=== PATIENT | female | born 1985 | race Two or more races ===

== ENCOUNTER 2020-04-19 13:46 | Outpatient (REF) | payer OTHER, SELFPAY ==
[2020-04-19 14:08] LABS: COVID-19 Test Negative (Negative); IDNOW Serial# 55D5AD1C
== END 2020-04-19 13:47 | disposition home or self-care (01) ==
LOC: HO.LAB 13:46
PROVIDERS: Visit Provider Internal Medicine
DX: Z20.828 Contact with and (suspected) exposure to other viral communicable diseases (principal)
CPT/HCPCS: 87635; C9803

== ENCOUNTER 2020-07-11 08:49 | Outpatient (REF) | payer OTHER, SELFPAY ==
[2020-07-11 09:49] LABS: MANUAL DIFF FLAG NO
[2020-07-11 10:01] LABS: Basophils Percent Auto 0.7 % (0-2); Eosinophils Absolute Auto 0.2 X10*3/uL (0.0-0.4); Eosinophils Percent Auto 3.5 % (0-4); Hematocrit 45.5 % (37-47); Hemoglobin 14.7 g/dl (12.0-16.0); Imm Gran Abs Auto 0.02 X10*3/uL (0.00-0.03); Imm Gran Pct Auto 0.3 % (0.0-0.4); Lymphocytes Percent Auto 17.2 % (20-40); Mean Corpuscular HGB Conc 32.3 g/dl (31.0-35.0); Mean Corpuscular Hemoglobin 28.8 pg (27.0-33.0); Mean Platelet Volume 12.1 fL (9.4-12.3); Monocytes Absolute Auto 0.4 X10*3/uL (0.1-1.2); Monocytes Percent Auto 6.4 % (2-11); Neutrophils Absolute Auto 4.2 X10*3/uL (2.0-8.3); Neutrophils Percent Auto 71.9 % (45-73); Platelet Count 229 X10*3/uL (160-400); Red Blood Count 5.11 X10*6/uL (4.20-5.50); Red Cell Distribution Width 12.5 % (11.0-16.0); White Blood Count 5.8 X10*3/uL (4.8-10.8)
[2020-07-11 10:24] LABS: Alanine Aminotransferase 19 U/L (0-31); Albumin Level 4.2 g/dL (3.5-5.0); Alkaline Phosphatase 63 U/L (39-117); Anion Gap 14 (12-20); Aspartate Amino Transferase 17 U/L (5-31); Bilirubin Total 0.4 mg/dL (0.0-1.0); Blood Urea Nitrogen 13 mg/dL (9-16); Calcium 9.1 mg/dL (8.4-10.2); Carbon Dioxide 26 mmol/L (22-29); Chloride 106 mmol/L (96-108); Cholesterol 146 mg/dL; Estimated Glomerular Filt Rate > 60; Glucose Fasting 86 mg/dL (60-99); HDL Cholesterol 37 mg/dL; LDL Cholesterol Calculated 95 mg/dl; Potassium 4.4 mmol/L (3.3-5.1); Sodium 142 mmol/L (135-145); Total Protein 7.1 g/dL (6.5-8.0); Triglycerides 74 mg/dL
[2020-07-11 10:46] LABS: TSH reflex Free T4 1.43 uIU/mL (0.32-4.0)
== END 2020-07-11 08:50 | disposition home or self-care (01) ==
LOC: HO.LAB 08:49
PROVIDERS: PCP Family Medicine; Visit Provider Family Medicine
DX: Z00.00 Encounter for general adult medical examination without abnormal findings (principal)
CPT/HCPCS: 36415; 80053; 80061; 84443; 85025

== ENCOUNTER 2020-07-31 08:23 | Outpatient (REF) | payer OTHER, SELFPAY ==
[2020-08-03 06:42] LABS: HPV mRNA E6/E7 rflx Not Detected (Not Detected)
== END 2020-07-31 08:24 | disposition home or self-care (01) ==
LOC: HO.LAB 08:23
PROVIDERS: PCP Family Medicine; Visit Provider Obstetrics & Gynecology
DX: Z01.419 Encounter for gynecological examination (general) (routine) without abnormal findings (principal); Z11.51 Encounter for screening for human papillomavirus (HPV)
CPT/HCPCS: 36415; 87624; 88142; 99395

== ENCOUNTER 2020-11-07 18:47 | Outpatient (REF) | payer OTHER, SELFPAY | END 2020-11-07 18:48 | disposition home or self-care (01) | LOC: HO.LNP 18:47 | PROVIDERS: Visit Provider Family Medicine | DX: N39.0 Urinary tract infection, site not specified (principal) | CPT/HCPCS: 87086 ==

== ENCOUNTER 2021-10-06 13:33 | Outpatient (REF) | payer OTHER, SELFPAY ==
[2021-10-06 13:55] LABS: Appearance Urine CLEAR; Color Urine YELLOW; Glucose Urine UA NEG (NEG); Leukocyte Esterase Urine TRACE (NEG); Nitrite Urine NEG (NEG); Specific Gravity - Urine 1.025 (1.005-1.025); Urine Blood NEG (NEG); Urine Ketones NEG (NEG); Urine Protein NEG (NEG-TRACE)
[2021-10-06 14:28] LABS: Bacteria Urine 3+ /LPF; RBC Urine 0 /HPF (0); Squamous Epithelial Cell Urine 4+ /LPF
== END 2021-10-06 13:34 | disposition home or self-care (01) ==
LOC: HO.LNP 13:33
PROVIDERS: Visit Provider Family Medicine
DX: Z00.00 Encounter for general adult medical examination without abnormal findings (principal)
CPT/HCPCS: 81001

== ENCOUNTER 2022-01-16 13:53 | Outpatient (REF) | payer OTHER, SELFPAY ==
--- NOTE | ~2022-01-16 | MM_ITS ---
EXAMINATION: MM DIAGNOSTIC DIGITAL BREAST TOMOSYNTHESIS, BILATERAL US DIAGNOSTIC ULTRASOUND BREAST, LEFT CLINICAL INFORMATION: 36-year-old with chronic sized palpable area posterior upper outer left breast for approximately 4 months. Family history breast cancer, 3 paternal aunts. TC score 17%. Intentional decreased weight since prior mammography, 2014. COMPARISON: Mammography: 11/12/2014; bilateral diagnostic breast ultrasound 06/28/2015, right diagnostic breast ultrasound 11/12/2014. TECHNIQUE: Digital breast tomosynthesis is performed in both the craniocaudal and mediolateral oblique views along with computer-aided detection (CAD). Synthesized 2D images are generated from the tomosynthesis. Additional exaggerated left CC view is provided. Ultrasound left breast is targeted to the area of clinical concern. Patient is able to point to area of concern at time of imaging. Grayscale imaging and color Doppler are performed. Patient is imaged both supine and upright. FINDINGS: The breasts are heterogeneously dense, which may obscure small masses (ACR BI-RADS breast composition Category c). There is bilateral decreased breast size consistent with intentional weight loss since prior mammography 2014. There is no interval mass or architectural abnormality or abnormal calcifications. There is no mammographic correlate for the palpable concern. No skin thickening or coarsening of the Cayetano's ligaments. Ultrasound demonstrates no cystic or solid mass or architectural abnormality. No intradermal lesion or skin thickening or edema tracking in soft tissue planes. Results are discussed with the patient at time of visit. MM/MM tomosynthesis diagnostic BI IMPRESSION: -No mammographic evidence of malignancy. -Unremarkable left breast ultrasound. ASSESSMENT: BI-RADS 1: Negative RECOMMENDATION: 1. Patient should be managed based on the clinical impression. If clinically indicated, further evaluation may be considered with surgical consult. Decision to proceed with biopsy should be based on clinical grounds and degree of clinical concern. 2. Otherwise, routine annual screening mammography, beginning age 40, or earlier as clinical risk factors warrant. This patient's information was entered into a reminder system with a target due date for their next mammogram.
== END 2022-01-16 13:54 | disposition home or self-care (01) ==
LOC: HO.MAMMO 13:53
PROVIDERS: PCP Family Medicine; Visit Provider Obstetrics & Gynecology
DX: N63.25 Unspecified lump in the left breast, overlapping quadrants (principal)
CPT/HCPCS: 76642; 77062; 77066

== ENCOUNTER → 2022-06-04 11:49 | Outpatient (BNVA) | payer OTHER, SELFPAY | PROVIDERS: PCP Family Medicine; Visit Provider Obstetrics & Gynecology | DX: N63.25 Unspecified lump in the left breast, overlapping quadrants (principal) | CPT/HCPCS: 99212 ==

== ENCOUNTER → 2022-07-03 10:03 | Outpatient (BNVA) | payer OTHER, SELFPAY | PROVIDERS: PCP Family Medicine; Visit Provider Surgery | DX: N63.0 Unspecified lump in unspecified breast (principal) | CPT/HCPCS: 99202 ==

== ENCOUNTER 2023-02-25 08:26 | Outpatient (AMB) | payer OTHER, SELFPAY ==
--- NOTE | 2023-02-25 08:39 | A.OFFVIS_ITS ---
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 No complaints. Last Pap/HPV was negative in 08/04 [facility] Medical History Sore throat Depression Anxiety Surgical History History of removal of breast implant History of bilateral tubal ligation History of surgery History of tonsillectomy Family History Father History of CVA (cerebrovascular accident) Colon cancer Stroke Mother Thyroid dysfunction High cholesterol Pre-diabetes Maternal Grandmother No problems noted. Maternal Grandfather Diabetes mellitus Paternal Grandmother No problems noted. Paternal Grandfather Colon cancer Maternal Aunt Diabetes mellitus Breast cancer Maternal Uncle FH: testicular cancer Brother No problems noted. Brother No problems noted. Brother No problems noted. Sister No problems noted. Son No problems noted. Daughter No problems noted. Daughter No problems noted. Maternal Aunt Breast cancer, Onset Age: 38 Maternal Aunt Breast cancer Social History Housing: Apartment Alcohol intake: current Alcohol intake frequency: holidays/special occasions only Patient Tobacco Use Status: Current someday Tobacco user Tobacco use type: Cigarette e-Cigarette/Vaping Use: Currently Using service: No Current occupational status: employed Current occupation: [employer] Gender identity: Female Cognitive needs: No Hearing needs: No Vision needs: No Female Reproductive History Menstrual Age of Menarche: 15 Duration of menses: 3-5 days Date of last menstrual period: 02/12/23 control method: permanent sterilization Total pregnancies: 4 Full term: 3 Number of Living Children: 3 Ab induced: 1 Date of last pap smear: 08/01/20 (negative) Review of Systems Const All systems reviewed & are unremarkable except as noted in HPI and below Card Reports as per HPI Resp Reports as per HPI GI Reports as per HPI and Reports no additional complaints Reports as per HPI Physical Exam Vital Signs: Last Vital Signs BP 100/58 L 02/25/23 08:41 BMI result Body Mass Index 31.3 Const General: cooperative, healthy appearing and comfortable Chest Chest palpation & inspection: normal inspection of the chest and normal palpation of entire chest wall Breast/axilla inspection: normal inspection of the breasts and normal inspection of the axillae Breast/axilla palpation: normal palpation of the breasts, normal palpation of the axillae and no axillary lymphadenopathy Resp Effort & Inspection: normal respiratory effort Auscultation: clear to auscultation bilaterally Percussion: percussion normal Cardio Palpation: normal PMI Rate: regular rate Rhythm: regular rhythm Heart sounds: no murmurs and no rubs Peripheral pulses: Peripheral pulses 2+ throughout GI Inspection: Yes normal to inspection Palpation (GI): Soft to palpation, nontender, no guarding, not rigid and No hepatosplenomegaly present Percussion: Yes normal to percussion Auscultation: normal bowel sounds Rectal Exam - Female: deferred General: Yes bladder normal to palpation External Female Exam: No lesion Speculum Exam - Vagina: normal appearance of the vagina, normal palpation, normal vaginal discharge and not erythematous Speculum Exam - Cervix: normal appearance of the cervix and normal palpation Bimanual exam- vagina & uterus: normal bimanual exam, normal palpation, uterine size normal, bladder normal to palpation, consistency normal and normal palpation Bimanual Exam- Adnexa, other: normal adnexae, no masses and no tenderness Assessment & Plan Assessment & Plan (1) Well woman exam: Code(s): Z01.419 - Encounter for gynecological examination (general) (routine) without abnormal findings Plan: Cotesting not indicated this year. Counseled the patient about the recommended dietary allowance of 1000 mg of Calcium & 600 IU of vitamin D. The patient was instructed to perform monthly self-breast exams and to schedule an annual exam in a year; All questions answered and the patient verbalized understanding. Instructed the patient to schedule annual exam in a year Coding Level of Care Code Est Pt Prev Care 18-39y(38250) Diagnoses Well woman exam Z01.419
[2023-02-25 08:41] VITALS: BP 100/58; BMI 31.3
== END 2023-02-25 08:58 | disposition home or self-care (01) ==
PROVIDERS: PCP Family Medicine; Visit Provider Obstetrics & Gynecology
DX: Z01.419 Encounter for gynecological examination (general) (routine) without abnormal findings (principal)
CPT/HCPCS: 99395

== ENCOUNTER → 2023-02-25 08:26 | Outpatient (BNVA) | payer OTHER, SELFPAY | PROVIDERS: Visit Provider Obstetrics & Gynecology | DX: Z01.419 Encounter for gynecological examination (general) (routine) without abnormal findings (principal) | CPT/HCPCS: 99395 ==

== ENCOUNTER 2023-03-03 16:01 | Outpatient (AMB) | payer OTHER, SELFPAY ==
[2023-03-03 16:08] VITALS: BP 110/70; PULSE 64; TEMP 36.9; O2SAT 97; BMI 31.3
--- NOTE | 2023-03-03 16:08 | MHC.PC.OV ---
Vital Signs 03/03/23 16:08 Height 5 ft 7 in Weight 200 lb BMI 31.3 BP 110/70 Blood Pressure Location Lt brachial Position Sitting Pulse 64 Pulse Source Pulse Oximeter Temp 98.4 F Temp Source Oral Pulse Oximetry (%) 97 Oxygen Delivery Method Room Air Oxygen Flow Rate 98.4 Intake Visit Reasons: Eczema on hands Intake Note: Patient is here with eczema acting up on her hands. Patient would like a note to have to only wear nitrile gloves at work. Allergies apple Allergy (Intermediate, Verified 03/03/23 16:38) SWELLING powers Allergy (Intermediate, Verified 03/03/23 16:38) SWELLING almond Allergy (Unknown, Verified 03/03/23 16:38) unknown plum Allergy (Unknown, Verified 03/03/23 16:38) throat swelling tree nut Allergy (Unknown, Verified 03/03/23 16:38) throat swelling, hives Medication List - Last Reconciled 03/03/23 by Iza Whelan CNP hydrocortisone 1% (Anti-Itch (hydrocortisone)) 1 appl topical TID PRN 14 days Tobacco use date assessed: 03/03/23 Dental Screening Dental Screen Date: 03/03/23 Did you have a dental visit in the last 12 months?: No Did you have a dental problem in the last 6 months where you did not have access to dental care?: No Was dental information given to patient?: Yes HPI HPI Comments History of Present Illness Details 37-year-old female presents with complaints of eczema rash to her fingers. She notes that the rash is very itchy. She has been using hydrocortisone cream as prescribed without improvement. 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 Nitrile gloves does not irritate her skin. She requests a letter noting that she requires nitrile gloves to perform her job duties. [facility] Medical History Sore throat Depression Anxiety Surgical History History of removal of breast implant History of bilateral tubal ligation History of surgery History of tonsillectomy Family History Father History of CVA (cerebrovascular accident) Colon cancer Stroke Mother Thyroid dysfunction High cholesterol Pre-diabetes Maternal Grandmother No problems noted. Maternal Grandfather Diabetes mellitus Paternal Grandmother No problems noted. Paternal Grandfather Colon cancer Maternal Aunt Diabetes mellitus Breast cancer Maternal Uncle FH: testicular cancer Brother No problems noted. Brother No problems noted. Brother No problems noted. Sister No problems noted. Son No problems noted. Daughter No problems noted. Daughter No problems noted. Maternal Aunt Breast cancer, Onset Age: 38 Maternal Aunt Breast cancer Social History Housing: Apartment Alcohol intake: current Alcohol intake frequency: holidays/special occasions only Patient Tobacco Use Status: Current someday Tobacco user Tobacco use type: Cigarette e-Cigarette/Vaping Use: Currently Using service: No Current occupational status: employed Current occupation: [employer] Gender identity: Female Cognitive needs: No Hearing needs: No Vision needs: No Female Reproductive History Menstrual Age of Menarche: 15 Questionnaire Thrive Questionnaire Date Thrive assessed: 10/06/22 LYSSA-7 AMB Questionnaire LYSSA-7 Date LYSSA - 7 assessed: 10/06/22 Source: Developed by Drs. Nas Mora, Shanelle Miller, Satnam Khoury and colleagues, with an educational thaddeus from [employer] Review of Systems Const Details: Const Denies chills, Denies fatigue, Denies fever(s), Denies headache(s) and Denies weakness ENT Denies dizziness and Denies headache(s) Card Denies chest pain, Denies lightheadedness, Denies dyspnea and Denies other (Palpitations) Resp Denies cough, Denies dyspnea, Denies wheezing and Denies other ( shortness of breath) GI Denies abdominal pain, Denies melena, Denies hematochezia, Denies change in bowel habits, Denies dyspepsia and Denies nausea Denies hematuria and Denies dysuria Musc Denies abnormal gait, Denies myalgias, Denies arthralgias, Denies numbness and Denies tingling Skin/Breast Reports as per HPI Neuro Denies abnormal gait, Denies dizziness, Denies headache(s), Denies memory loss, Denies numbness, Denies Sensory deficit (Neuro), Denies tingling and Denies weakness Psych Denies anxiety, Denies depression, Denies memory loss Endo Denies cold intolerance, Denies fatigue, Denies heat intolerance, Denies polydipsia and Denies polyuria Aller/Immun Denies wheezing Physical exam (Primary Care) Vital Signs: Last Vital Signs Temp 98.4 F 03/03/23 16:08 Pulse 64 03/03/23 16:08 BP 110/70 03/03/23 16:08 Pulse Ox 97 03/03/23 16:08 Oxygen Delivery Method Room Air 03/03/23 16:08 Oxygen Flow Rate 98.4 03/03/23 16:08 BMI result Body Mass Index 31.3 Tobacco/Smoking Status: Tobacco use Status Tobacco use date assessed 03/03/23 03/03/23 16:15 Patient Tobacco Use Status Current someday Tobacco 03/03/23 16:15 Tobacco use type Cigarette 03/03/23 16:15 e-Cigarette/Vaping Use Currently Using 03/03/23 16:15 Thrive Assessment: Date of Thrive Assessment Date Thrive assessed 10/06/22 03/03/23 16:15 Const Other: General: no acute distress and well developed Nutritional Appearance: well nourished Orientation/consciousness: patient oriented x3 HENMT Head: Yes normocephalic and Yes atraumatic Eyes General: appearance normal, both eyes and all related structures Pupils: Equal, round and reactive pupils present EOM: EOMs intact bilaterally Resp Effort & Inspection: normal respiratory effort Auscultation: clear to auscultation bilaterally Cardio Rate: regular rate Rhythm: regular rhythm Heart sounds: S1 normal heart sound present, S2 normal heart sound present, no gallops, no murmurs and no rubs GI Palpation (GI): No Abdominal aortic bruit present, Soft to palpation, nontender, No hepatosplenomegaly present and No Rebound tenderness present Auscultation: normal bowel sounds General: Yes no CVA tenderness Back/Spine/Pelvis Back: no CVA tenderness Cervical Spine: cervical ROM normal and No Cervical spine tenderness Thoracic/Lumbar Spine: thoraco-lumbar ROM normal, No pain with thoraco-lumbar ROM, No thoracic spinal tenderness and No lumbar spinal tenderness Extrem General: Yes normal to inspection, No edema and No calf tenderness Skin General: warm and dry. Normal skin color. Normal skin turgor Dry, irritated skin noted to the dorsum of the fingers of both hands. No erythema or edema. Skin is intact Neuro General: patient oriented x3, gait normal and no focal neuro deficit Cranial nerves: Yes Equal, round and reactive pupils present Cognition (Neuro): normal cognition Gait exam (Neuro): Normal gait present Sensory Exam: No Sensory deficit (Neuro) Psych Appearance: grossly normal Affect: normal affect Attitude: cooperative Thought process: Normal thought process present Assessment and Plan Assessment & Plan (1) Eczema: Code(s): L30.9 - Dermatitis, unspecified Plan: Reports eczema rash to her fingers. She notes that the rash is very itchy. 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 Nitrile gloves does not irritate her skin. Dry, irritated skin noted to the dorsum of the fingers of both hands. No erythema or edema. Skin is intact. Betamethasone cream ordered. Take as prescribed Letter given to wear nitrile gloves when performing job functions. Follow-up with worsening or new signs and symptoms. Verbalized understanding and agreed with treatment plan. Medications: New betamethasone valerate 0.1% 1 appl topical BID PRN 45 grams 2RF skin irritation Discontinued hydrocortisone 1% (Anti-Itch (hydrocortisone)) Discontinued Reason: Doctor's Order 1 appl topical TID PRN 28.4 grams 3RF skin irritation 14 days Coding Level of Care Code Est Pt Level 3 (89826) Diagnoses Eczema L30.9
== END 2023-03-03 17:06 | disposition home or self-care (01) ==
PROVIDERS: PCP Family Medicine; Visit Provider Nurse Practitioner Family
DX: L30.9 Dermatitis, unspecified (principal)
CPT/HCPCS: 99213

== ENCOUNTER 2023-03-25 09:31 | Outpatient (AMB) | payer OTHER, SELFPAY ==
[2023-03-25 09:36] VITALS: BP 100/62; PULSE 69; RESP 15; TEMP 37; O2SAT 99; BMI 31.0
--- NOTE | 2023-03-25 09:36 | MHC.PC.OV ---
Vital Signs 03/25/23 09:36 Height 5 ft 7 in Weight 198 lb BMI 31.0 BP 100/62 Blood Pressure Location Lt brachial Position Sitting Respiration 15 Pulse 69 Pulse Source Pulse Oximeter Temp 98.6 F Temp Source Oral Pulse Oximetry (%) 99 Oxygen Delivery Method Room Air Intake Visit Reasons: Body aches/headache/cough/sore throat Intake Note: Patient reports cough, sore throat and body aches x 4 days, fever, body aches, headache x 3 days, loss of appetite, running nose, diarrhea, body aches, x 1 day. Patient states she tested herself at home for Covid several times and she tested negative. Press Secretary Required: No Accompanied by: Self / Same As Patient Allergies apple Allergy (Intermediate, Verified 03/25/23 10:01) SWELLING powers Allergy (Intermediate, Verified 03/25/23 10:01) SWELLING almond Allergy (Unknown, Verified 03/25/23 10:01) unknown plum Allergy (Unknown, Verified 03/25/23 10:01) throat swelling tree nut Allergy (Unknown, Verified 03/25/23 10:01) throat swelling, hives Medication List - Last Reconciled 03/25/23 by Iza Whelan CNP betamethasone valerate 0.1% 1 appl topical BID PRN Tobacco use date assessed: 03/03/23 HPI HPI Comments History of Present Illness Details 37-year-old female presents with complaints of cough, sore throat, body aches, headache, loss of appetite, runny nose, chills, sweating, weakness, and clogged ears. Her symptoms started 4 days ago and has progressively gotten worse. She reports stomach pain which started this morning; she had non bloody vomit x 1 this morning. She has been taking daytime and nighttime tylenol-flu with some improvement. She denies sick contacts. 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 She notes she had multiple negative home COVID tests. She states she had the flu vaccine last week. COUNT INCLUDES THE [facility] Medical History Sore throat Depression Anxiety Surgical History History of removal of breast implant History of bilateral tubal ligation History of surgery History of tonsillectomy Family History Father History of CVA (cerebrovascular accident) Colon cancer Stroke Mother Thyroid dysfunction High cholesterol Pre-diabetes Maternal Grandmother No problems noted. Maternal Grandfather Diabetes mellitus Paternal Grandmother No problems noted. Paternal Grandfather Colon cancer Maternal Aunt Diabetes mellitus Breast cancer Maternal Uncle FH: testicular cancer Brother No problems noted. Brother No problems noted. Brother No problems noted. Sister No problems noted. Son No problems noted. Daughter No problems noted. Daughter No problems noted. Maternal Aunt Breast cancer, Onset Age: 38 Maternal Aunt Breast cancer Social History Housing: Apartment Alcohol intake: current Alcohol intake frequency: holidays/special occasions only Patient Tobacco Use Status: Current someday Tobacco user Tobacco use type: Cigarette e-Cigarette/Vaping Use: Currently Using service: No Current occupational status: employed Current occupation: [employer] Gender identity: Female Cognitive needs: No Hearing needs: No Vision needs: No Female Reproductive History Menstrual Age of Menarche: 15 Questionnaire Thrive Questionnaire Date Thrive assessed: 10/06/22 LYSSA-7 AMB Questionnaire LYSSA-7 Date LYSSA - 7 assessed: 10/06/22 Source: Developed by Drs. Nas Mora, Shanelle Miller, Satnam Khoury and colleagues, with an educational thaddeus from [employer]. Review of Systems Const Details: Const Reports chills, Reports fatigue, Denies fever(s), Reports headache(s) and Reports weakness ENT Reports as per HPI Card Denies chest pain, Denies lightheadedness, Denies dyspnea and Denies other (Palpitations) Resp Denies cough, Denies dyspnea, Denies wheezing and Denies other ( shortness of breath) GI Reports abdominal pain, Denies melena, Denies hematochezia, Denies change in bowel habits, Denies dyspepsia and Denies nausea Denies hematuria and Denies dysuria Musc Denies abnormal gait, Denies myalgias, Denies arthralgias, Denies numbness and Denies tingling Skin/Breast Denies rash, Denies unusual bruising and Denies wounds Neuro Denies abnormal gait, Denies dizziness, Reports headache(s), Denies memory loss, Denies numbness, Denies Sensory deficit (Neuro), Denies tingling and Denies weakness Psych Denies anxiety, Denies depression, Denies memory loss Endo Denies cold intolerance, Reports fatigue, Denies heat intolerance, Denies polydipsia and Denies polyuria Aller/Immun Denies wheezing Physical exam (Primary Care) Vital Signs: Last Vital Signs Temp 98.6 F 03/25/23 09:36 Pulse 69 03/25/23 09:36 Resp 15 03/25/23 09:36 BP 100/62 03/25/23 09:36 Pulse Ox 99 03/25/23 09:36 Oxygen Delivery Method Room Air 03/25/23 09:36 BMI result Body Mass Index 31.0 Tobacco/Smoking Status: Tobacco use Status Tobacco use date assessed 03/03/23 03/25/23 09:44 Patient Tobacco Use Status Current someday Tobacco 03/25/23 09:44 Tobacco use type Cigarette 03/25/23 09:44 e-Cigarette/Vaping Use Currently Using 03/25/23 09:44 Thrive Assessment: Date of Thrive Assessment Date Thrive assessed 10/06/22 03/25/23 09:44 Const Other: General: no acute distress and well developed Nutritional Appearance: well nourished Orientation/consciousness: patient oriented x3 HENMT Head is normocephalic Bilateral ear canal and TM are normal Nasal turbinates are pink and moist Oropharynx with moderate erythema, tonsils are not swollen, no patches or exudate Sinuses are nontender with palpation No auricular or cervical lymphadenopathy Eyes General: appearance normal, both eyes and all related structures Pupils: Equal, round and reactive pupils present EOM: EOMs intact bilaterally Resp Effort & Inspection: normal respiratory effort Auscultation: clear to auscultation bilaterally Cardio Rate: regular rate Rhythm: regular rhythm Heart sounds: S1 normal heart sound present, S2 normal heart sound present, no gallops, no murmurs and no rubs GI Palpation (GI): No Abdominal aortic bruit present, Soft to palpation, nontender, No hepatosplenomegaly present and No Rebound tenderness present Auscultation: normal bowel sounds General: Yes no CVA tenderness Back/Spine/Pelvis Back: no CVA tenderness Cervical Spine: cervical ROM normal and No Cervical spine tenderness Thoracic/Lumbar Spine: thoraco-lumbar ROM normal, No pain with thoraco-lumbar ROM, No thoracic spinal tenderness and No lumbar spinal tenderness Extrem General: Yes normal to inspection, No edema and No calf tenderness Skin General: warm and dry. Normal skin color. Normal skin turgor Neuro General: patient oriented x3, gait normal and no focal neuro deficit Cranial nerves: Yes Equal, round and reactive pupils present Cognition (Neuro): normal cognition Gait exam (Neuro): Normal gait present Sensory Exam: No Sensory deficit (Neuro) Psych Appearance: grossly normal Affect: normal affect Attitude: cooperative Thought process: Normal thought process present Assessment and Plan Assessment & Plan (1) Viral infection: Code(s): B34.9 - Viral infection, unspecified Plan: Likely viral illness though possibly allergies. No exam evidence of bacterial infection Viral illness There is no antibiotic medication for viruses.? They must run their course.? Most average 5-7 days but 7-10 days is not uncommon and up to 14 days is still possible.? A cough is often the last symptom to resolve and this can last for weeks in some cases. Rest Hydrate well -? Drink plenty of fluids.? Especially water. Tylenol or ibuprofen for muscle aches, headache, fever/discomfort Zyrtec daily Cannot rule out COVID-19/RSV/Flu infection Nasal swab acquired and will be sent to the lab Return for new or worsening symptoms Verbalized understanding and agreed with treatment plan. (2) Pharyngitis: Code(s): J02.9 - Acute pharyngitis, unspecified Plan: Oropharynx with moderate erythema, tonsils are not swollen, no patches or exudate Likely viral cause Plan as above Orders: Orders SARS-CoV2/FLU/RSV Today B34.9 - Viral infection, unspecified Medications: New cetirizine (Zyrtec) 10 mg PO DAILY 30 tabs 1RF 30 days Coding Level of Care Code Est Pt Level 3 (83544) Diagnoses Viral infection B34.9 Pharyngitis J02.9
== END 2023-03-25 10:56 | disposition home or self-care (01) ==
PROVIDERS: PCP Family Medicine; Visit Provider Nurse Practitioner Family
DX: B34.9 Viral infection, unspecified (principal); J02.9 Acute pharyngitis, unspecified
CPT/HCPCS: 99213

== ENCOUNTER 2023-03-25 10:22 | Outpatient (REF) | payer OTHER, SELFPAY ==
[2023-03-25 15:40] LABS: Influenza A PCR POSITIVE (Negative); Influenza B PCR NEGATIVE (Negative); Resp Syncy Virus RNA Qual PCR NEGATIVE (Negative); SARS COV2 PCR INHOUSE NEGATIVE (Negative)
== END 2023-03-25 10:23 | disposition home or self-care (01) ==
LOC: HO.LAB 10:22
PROVIDERS: Visit Provider Nurse Practitioner Family
DX: Z11.52 Encounter for screening for COVID-19 (principal); B34.9 Viral infection, unspecified
CPT/HCPCS: 0241U

== ENCOUNTER 2023-06-09 15:38 | Outpatient (AMB) | payer OTHER, SELFPAY ==
--- NOTE | 2023-06-09 15:51 | MHC.PC.OV ---
Vital Signs 06/09/23 15:53 Height 5 ft 7 in Weight 198 lb BMI 31.0 BP 101/72 Blood Pressure Location Lt brachial Position Sitting Pulse 61 Pulse Source Pulse Oximeter Pulse Oximetry (%) 100 Oxygen Delivery Method Room Air Intake Visit Reasons: Annual PE Intake Note: Patient is here for her physical today. Patient is requesting vitamin D prescription today. Allergies apple Allergy (Intermediate, Verified 06/09/23 15:54) SWELLING powers Allergy (Intermediate, Verified 06/09/23 15:54) SWELLING almond Allergy (Unknown, Verified 06/09/23 15:54) unknown plum Allergy (Unknown, Verified 06/09/23 15:54) throat swelling tree nut Allergy (Unknown, Verified 06/09/23 15:54) throat swelling, hives Tobacco use date assessed: 06/09/23 Dental Screening Dental Screen Date: 06/09/23 Did you have a dental visit in the last 12 months?: No Did you have a dental problem in the last 6 months where you did not have access to dental care?: No Was dental information given to patient?: Yes HPI Annual PE HPI Details 37 y/o female presents for an extended exam with f/u labs and health maintenance. No recent labs to review. Pt requests supplements for her vitamin D. Pt reports abdominal, intermittent has been ongoing for awhile. She states she does feel bloated. She states abd. pain worse in the morning. She notes she does not drink much water. Pt states she does not eat a healthy diet much. She does have an active lifestyle. Pt reports she goes to [facility] and last pap smear was normal per pt. She states last mammogram was in February. [facility] Medical History Sore throat Depression Anxiety Surgical History History of removal of breast implant History of bilateral tubal ligation History of surgery History of tonsillectomy Family History Father History of CVA (cerebrovascular accident) Colon cancer Stroke Mother Thyroid dysfunction High cholesterol Pre-diabetes Maternal Grandmother No problems noted. Maternal Grandfather Diabetes mellitus Paternal Grandmother No problems noted. Paternal Grandfather Colon cancer Maternal Aunt Diabetes mellitus Breast cancer Maternal Uncle FH: testicular cancer Brother No problems noted. Brother No problems noted. Brother No problems noted. Sister No problems noted. Son No problems noted. Daughter No problems noted. Daughter No problems noted. Maternal Aunt Breast cancer, Onset Age: 38 Maternal Aunt Breast cancer Social History Housing: Apartment Alcohol intake: current Alcohol intake frequency: holidays/special occasions only Patient Tobacco Use Status: Current someday Tobacco user Tobacco use type: Cigarette e-Cigarette/Vaping Use: Currently Using service: No Current occupational status: employed Current occupation: [employer] Gender identity: Female Cognitive needs: No Hearing needs: No Vision needs: No Female Reproductive History Menstrual Age of Menarche: 15 Questionnaire PHQ-9 Over the last 2 weeks, how often have you been bothered by any of the following problems? 1. Little interest or pleasure in doing things: not at all 2. Feeling down, depressed, or hopeless: not at all 3. Trouble falling or staying asleep, or sleeping too much: several days 4. Feeling tired or having little energy: more than half the days 5. Poor appetite or overeating: several days 6. Feeling bad about yourself - or that you are a failure or have let yourself or your family down: not at all 7. Trouble concentrating on things, such as reading the newspaper or watching television: several days 8. Moving or speaking so slowly that other people could have noticed. Or the opposite - being so fidgety or restless that you have been moving around a lot more than usual: not at all 9. Thoughts that you would be better off or of hurting yourself in some way: not at all Total score: 5 Source: Developed by Drs. Nas Mora, Shanelle Miller, Satnam Khoury and colleagues, with an educational thaddeus from [employer]. Thrive Questionnaire Date Thrive assessed: 06/09/23 I am a: Patient What is your living situation today?: I have a steady place to live Within the past 12 months, did the food you bought not last and you didn't have the money to get more?: Never true Within the past 12 months, did you worry whether your food would run out before you got money to buy more?: Never true Do you have trouble paying for medicines?: No Do you have trouble getting transportation to medical appointments?: No Do you have trouble paying your heating and electricity bill?: No Do you have trouble taking care of your child, family member or friend?: No Do you have trouble with day-to-day activities such as bathing, preparing meals, shopping, managing finances, etc.?: No Are you currently unemployed and looking for a job?: No Are you interested in more education?: No THRIVE Score: 0 AUDIT C Alcohol Use Questionnaire (AUDIT-C) 1. How often do you have a drink containing alcohol?: Monthly or less 2. How many drinks containing alcohol do you have on a typical day when you are drinking?: 1 or 2 3. How often do you have six or more drinks on one occasion?: Never Total Score: 1 LYSSA-7 AMB Questionnaire LYSSA-7 Date LYSSA - 7 assessed: 06/09/23 Feeling nervous, anxious, or on edge: 1 = Several days Not being able to stop or control worryin = Several days Worrying too much about different things: 1 = Several days Trouble relaxin = Several days Being so restless that it is hard to sit still: 1 = Several days Becoming easily annoyed or irritable: 3 = Nearly every day Feeling afraid as if something awful might happen: 0 = Not at all Total LYSSA-7 score (0-4 normal; 5-9 mild; 10-14 moderate; 15-21 severe): 8 Source: Developed by Drs. Nas Mora, Shanelle Miller, Satnam Khoury and colleagues, with an educational thaddeus from [employer]. Review of Systems Const Denies chills, Denies fatigue, Denies fever(s), Denies headache(s) and Denies weakness Eyes Denies change in vision ENT Denies dizziness, Denies headache(s), Denies hearing loss, Denies nasal congestion, Denies sinus pain, Denies sinus pressure and Denies sore throat Card Denies chest pain, Denies lightheadedness, Denies dyspnea and Denies other (palpitations) Resp Denies cough, Denies dyspnea and Denies wheezing GI Denies abdominal pain, Denies melena, Denies hematochezia, Denies change in bowel habits, Denies dyspepsia and Denies nausea Denies hematuria and Denies dysuria Musc Denies abnormal gait, Denies myalgias, Denies arthralgias, Denies numbness and Denies tingling Skin/Breast Denies rash, Denies unusual bruising and Denies wounds Neuro Denies abnormal gait, Denies dizziness, Denies headache(s), Denies memory loss, Denies numbness, Denies Sensory deficit (Neuro), Denies tingling and Denies weakness Psych Denies anxiety, Denies depression and Denies memory loss Endo Denies cold intolerance, Denies fatigue, Denies heat intolerance, Denies polydipsia and Denies polyuria Davon/Lymph Denies easy bleeding and Denies easy bruising Aller/Immun Denies wheezing Physical exam (Primary Care) BMI result Body Mass Index 31.0 Tobacco/Smoking Status: Tobacco use Status Tobacco use date assessed 06/09/23 06/09/23 16:06 Patient Tobacco Use Status Current someday Tobacco 06/09/23 16:06 Tobacco use type Cigarette 06/09/23 16:06 e-Cigarette/Vaping Use Currently Using 06/09/23 16:06 PHQ-9: PHQ-9 Score PHQ-9: Total score 5 06/09/23 16:06 Thrive Assessment: Date of Thrive Assessment Date Thrive assessed 06/09/23 06/09/23 16:06 Const General: no acute distress, well developed, alert and awake Nutritional Appearance: well nourished Orientation/consciousness: patient oriented x3 HENMT Head: Yes normocephalic and Yes atraumatic Ears: hearing grossly normal bilaterally and TM's normal bilaterally General nose exam: Normal external nose present and Normal nares present Mouth: Normal oral and palatal mucosa present and moist mucous membranes Teeth and gingiva: dentition normal Throat: Yes posterior oropharynx normal Eyes General: appearance normal, both eyes and all related structures Pupils: Equal, round and reactive pupils present and Pupil accommodation reflex normal EOM: EOMs intact bilaterally Neck Neck: Yes normal visual inspection, Yes no lymphadenopathy and Yes trachea midline Thyroid: Thyroid normal Carotids: no bruits Lymphatic: no lymphadenopathy noted Chest Chest palpation & inspection: normal inspection of the chest Resp Effort & Inspection: normal respiratory effort Auscultation: clear to auscultation bilaterally Cardio Rate: regular rate Rhythm: regular rhythm Heart sounds: S1 normal heart sound present, S2 normal heart sound present, no gallops, no murmurs and no rubs Bruits: no abdominal aortic bruits and no carotid bruits GI Palpation (GI): No Abdominal aortic bruit present, Soft to palpation, nontender, No hepatosplenomegaly present and No Rebound tenderness present Auscultation: normal bowel sounds General: Yes no CVA tenderness Back/Spine/Pelvis Back: no CVA tenderness Cervical Spine: cervical ROM normal and No Cervical spine tenderness Thoracic/Lumbar Spine: thoraco-lumbar ROM normal, No pain with thoraco-lumbar ROM, No thoracic spinal tenderness and No lumbar spinal tenderness Skin Lesions: no lesions Rashes: no rashes Trauma: no lacerations or abrasions Wounds: no wounds Nails: normal Neuro General: patient oriented x3 Cranial nerves: Yes Equal, round and reactive pupils present Cognition (Neuro): normal cognition Gait exam (Neuro): Normal gait present Motor exam (neuro): 5/5 motor strength present throughout Sensory Exam: No Sensory deficit (Neuro) Deep tendon reflexes (DTR's): Right patellar reflex intensity grade: 2+ and Left patellar reflex intensity grade: 2+ Extrem General: Yes normal to inspection and No edema Psych Appearance: grossly normal Affect: normal affect Attitude: cooperative Thought process: Normal thought process present Assessment and Plan Assessment & Plan (1) Abdominal pain: Code(s): R10.9 - Unspecified abdominal pain Plan: Increase?hydration Consider?soluble?fiber?tablet She?will?let?me?know?if?not?improving (2) Screening for cervical cancer: Code(s): Z12.4 - Encounter for screening for malignant neoplasm of cervix Plan: Followed?by?[facility]?and?up-to-date Continue?to?follow-up?with?lead software qa engineer?as?recommended (3) Low vitamin D level: Code(s): R79.89 - Other specified abnormal findings of blood chemistry Plan: Check?vitamin-D?level Refilled?her?vitamin-D (4) Adult general medical exam: Code(s): Z00.00 - Encounter for general adult medical examination without abnormal findings Plan: 37-year-old?female?presents?for?extended?exam Encouraged?healthy?diet?with?active?lifestyle?and?plenty?of?exercise Orders: Orders Lipid Panel Today Z00.00 - Encounter for general adult medical examination without abnormal findings Microalbumin, Random (w Creat) Today I10 - Essential (primary) hypertension TSH reflex Free T4 Today Z00.00 - Encounter for general adult medical examination without abnormal findings Comprehensive [place]. Panel Fast Today Z00.00 - Encounter for general adult medical examination without abnormal findings UA and rflx microscopic Today Z00.00 - Encounter for general adult medical examination without abnormal findings Vitamin D 25-OH Total Today E55.9 - Vitamin D deficiency, unspecified Medications: New cholecalciferol (vitamin D3) 50 mcg PO DAILY 90 days 90 caps 1RF Coding Level of Care Code Est Pt Level 4 (26449) Diagnoses Abdominal pain R10.9 Screening for cervical cancer Z12.4 Low vitamin D level R79.89 Adult general medical exam Z00.00
[2023-06-09 15:53] VITALS: BP 101/72; PULSE 61; O2SAT 100; BMI 31.0
== END 2023-06-09 16:31 | disposition home or self-care (01) ==
PROVIDERS: PCP Family Medicine; Visit Provider Family Medicine
DX: Z00.00 Encounter for general adult medical examination without abnormal findings (principal); R10.9 Unspecified abdominal pain; R79.89 Other specified abnormal findings of blood chemistry
CPT/HCPCS: 99395

== ENCOUNTER 2023-06-10 07:49 | Outpatient (REF) | payer OTHER, SELFPAY ==
[2023-06-10 08:15] LABS: Appearance Urine Clear; Color Urine Yellow; Glucose Urine UA Negative (Negative); Leukocyte Esterase Urine Negative (Negative); Nitrite Urine Negative (Negative); PH 5.5 (5.0-9.0); Specific Gravity - Urine >= 1.030 (1.005-1.025); Urine Blood Negative (Negative); Urine Ketones Negative (Negative); Urine Protein Negative (Neg-Trace)
[2023-06-10 08:43] LABS: Creatinine Urine 303.59 mg/dL; Microalbum/Creatinine Ratio Ur 3.6 ug/mg cr (<30)
[2023-06-10 08:54] LABS: Alanine Aminotransferase 11 U/L (0-31); Albumin Level 3.9 g/dL (3.5-5.0); Alkaline Phosphatase 57 U/L (39-117); Anion Gap 11 (12-20); Aspartate Amino Transferase 12 U/L (5-31); Bilirubin Total 0.4 mg/dL (0.0-1.0); Blood Urea Nitrogen 10 mg/dL (9-16); Calcium 9.2 mg/dL (8.4-10.2); Carbon Dioxide 26 mmol/L (22-29); Chloride 107 mmol/L (96-108); Cholesterol 148 mg/dL (<200); Estimated Glomerular Filt Rate > 60; Glucose Fasting 85 mg/dL (60-99); HDL Cholesterol 40 mg/dL (>40); LDL Cholesterol Calculated 98 mg/dL (<100); Potassium 3.5 mmol/L (3.3-5.1); Sodium 140 mmol/L (135-145); Triglycerides 51 mg/dL (<150)
[2023-06-10 09:03] LABS: TSH reflex Free T4 1.77 uIU/mL (0.32-4.0)
== END 2023-06-10 07:50 | disposition home or self-care (01) ==
LOC: HO.LAB 07:49
PROVIDERS: PCP Family Medicine; Visit Provider Family Medicine
DX: Z00.00 Encounter for general adult medical examination without abnormal findings (principal); I10 Essential (primary) hypertension; E55.9 Vitamin D deficiency, unspecified
CPT/HCPCS: 36415; 80053; 80061; 81003; 82043; 82306; 82570; 84443

== ENCOUNTER 2023-07-23 15:09 | Outpatient (AMB) | payer OTHER, SELFPAY ==
--- NOTE | 2023-07-23 15:05 | MHC.PC.OV ---
Intake Visit Reasons: f/u CPE-labs Allergies apple Allergy (Intermediate, Verified 07/23/23 15:06) SWELLING powers Allergy (Intermediate, Verified 07/23/23 15:06) SWELLING almond Allergy (Unknown, Verified 07/23/23 15:06) unknown plum Allergy (Unknown, Verified 07/23/23 15:06) throat swelling tree nut Allergy (Unknown, Verified 07/23/23 15:06) throat swelling, hives Tobacco use date assessed: 06/09/23 HPI f/u CPE-labs HPI Details Telemedicine?appointment?to?follow-up?CPE-labs?and?abdominal?discomfort. Reviewed?labs?with?patient?and?all?labs?okay?except?urine?is?maximally?concentrated?and?as?we?discussed?at?her?appointment?recently,?she?should?increase?her?hydration. Patient?notes?that?since?increasing?hydration?after?labs,?symptoms?have?improved?somewhat. PFSH Medical History Sore throat Depression Anxiety Surgical History History of removal of breast implant History of bilateral tubal ligation History of surgery History of tonsillectomy Family History Father History of CVA (cerebrovascular accident) Colon cancer Stroke Mother Thyroid dysfunction High cholesterol Pre-diabetes Maternal Grandmother No problems noted. Maternal Grandfather Diabetes mellitus Paternal Grandmother No problems noted. Paternal Grandfather Colon cancer Maternal Aunt Diabetes mellitus Breast cancer Maternal Uncle FH: testicular cancer Brother No problems noted. Brother No problems noted. Brother No problems noted. Sister No problems noted. Son No problems noted. Daughter No problems noted. Daughter No problems noted. Maternal Aunt Breast cancer, Onset Age: 38 Maternal Aunt Breast cancer Social History Housing: Apartment Alcohol intake: current Alcohol intake frequency: holidays/special occasions only Patient Tobacco Use Status: Current someday Tobacco user Tobacco use type: Cigarette Cigarettes Per Day: 1 e-Cigarette/Vaping Use: Currently Using service: No Current occupational status: employed Current occupation: [employer] Gender identity: Female Cognitive needs: No Hearing needs: No Vision needs: No Female Reproductive History Menstrual Age of Menarche: 15 Questionnaire Thrive Questionnaire Date Thrive assessed: 06/09/23 LYSSA-7 AMB Questionnaire LYSSA-7 Date LYSSA - 7 assessed: 06/09/23 Source: Developed by Drs. Nas Mora, Shanelle Miller, Satnam Khoury and colleagues, with an educational thaddeus from [employer]. Review of Systems Const Denies chills, Denies fatigue, Denies fever(s), Denies headache(s) and Denies weakness ENT Denies dizziness and Denies headache(s) Card Denies chest pain, Denies lightheadedness, Denies dyspnea and Denies other (Palpitations) Resp Denies cough, Denies dyspnea, Denies wheezing and Denies other ( shortness of breath) Musc Denies numbness and Denies tingling Neuro Denies dizziness, Denies headache(s), Denies numbness, Denies tingling, Denies paresthesias and Denies weakness Psych Denies anxiety and Denies depression Endo Denies fatigue Aller/Immun Denies wheezing Physical exam (Primary Care) Tobacco/Smoking Status: Tobacco use Status Tobacco use date assessed 06/09/23 07/23/23 15:08 Patient Tobacco Use Status Current someday Tobacco 07/23/23 15:08 Tobacco use type Cigarette 07/23/23 15:08 e-Cigarette/Vaping Use Currently Using 07/23/23 15:08 Thrive Assessment: Date of Thrive Assessment Date Thrive assessed 06/09/23 07/23/23 15:08 Telehealth Telehealth Location of provider rendering services: practice address Location of patient: address on file Patient Identification confirmed using: Name, : Yes Telehealth method: voice only Patient verbally consented to treatment: Yes Patient verbally consented to billing insurance company: Yes Patient informed of any privacy concerns related to visit: Yes Minutes spent on Phone/Video with Pt.: 5 Assessment and Plan Assessment & Plan (1) Abdominal pain: Code(s): R10.9 - Unspecified abdominal pain Plan: Improved?with?good?hydration Encouraged?good?hydration?again (2) Low vitamin D level: Code(s): R79.89 - Other specified abnormal findings of blood chemistry Plan: Vitamin-D?level?is?good?on?cholecalciferol?supplement. Continue?vitamin-D?supplement Coding Level of Care Code Tele Est Pt Level 2 (93440) Diagnoses Abdominal pain R10.9 Low vitamin D level R79.89
== END 2023-07-23 17:00 ==
LOC: HO.HMGFM 15:10
PROVIDERS: PCP Family Medicine; Visit Provider Family Medicine
DX: R10.9 Unspecified abdominal pain (principal); R79.89 Other specified abnormal findings of blood chemistry
CPT/HCPCS: 99212

== ENCOUNTER 2024-04-19 09:34 | Outpatient (REF) | payer OTHER, SELFPAY ==
[2024-04-19 18:13] LABS: Bacterial Vaginosis PCR NEGATIVE (Negative); Candida Group PCR NOT DETECTED (Not Detect); Candida glab krusei PCR NOT DETECTED (Not Detect); Trichomonas vaginalis PCR NOT DETECTED (Not Detect)
[2024-04-20 06:29] LABS: CT PCR NOT DETECTED (Not Detect.); NG PCR NOT DETECTED (Not Detect.)
== END 2024-04-19 09:35 | disposition home or self-care (01) ==
LOC: HO.LNP 09:34
PROVIDERS: PCP Family Medicine; Visit Provider Obstetrics & Gynecology
DX: Z01.419 Encounter for gynecological examination (general) (routine) without abnormal findings (principal); Z11.3 Encounter for screening for infections with a predominantly sexual mode of transmission; Z20.2 Contact with and (suspected) exposure to infections with a predominantly sexual mode of transmission
CPT/HCPCS: 0352U; 87491; 87591; 99395

== ENCOUNTER 2024-04-19 09:53 | Outpatient (AMB) | payer OTHER, SELFPAY ==
--- NOTE | 2024-04-19 10:13 | MHC.OFFVIS ---
Vital Signs 04/19/24 10:15 Height 5 ft 7 in Weight 195 lb BMI 30.5 BP 116/70 Intake Visit Reasons: annual Catering Assistant Required: No Information Interpreted: non-clinical & clinical Search Marketing Specialist: Search Marketing Specialist Present (Iqra SALAZAR) Accompanied by: Self / Same As Patient Allergies apple Allergy (Intermediate, Verified 04/19/24 10:20) SWELLING powers Allergy (Intermediate, Verified 04/19/24 10:20) SWELLING almond Allergy (Unknown, Verified 04/19/24 10:20) unknown plum Allergy (Unknown, Verified 04/19/24 10:20) throat swelling tree nut Allergy (Unknown, Verified 04/19/24 10:20) throat swelling, hives Is last menstrual period known: Yes Last menstrual period: 03/21/24 HPI Comments Details: Presenting for annual exam. No complaints. Requesting STD screen Last Pap/HPV was negative in 08/04 [facility] Medical History Sore throat Depression Anxiety Surgical History History of removal of breast implant History of bilateral tubal ligation History of surgery History of tonsillectomy Family History Father History of CVA (cerebrovascular accident) Colon cancer Stroke Mother Thyroid dysfunction High cholesterol Pre-diabetes Maternal Grandmother No problems noted. Maternal Grandfather Diabetes mellitus Paternal Grandmother No problems noted. Paternal Grandfather Colon cancer Maternal Aunt Diabetes mellitus Breast cancer Maternal Uncle FH: testicular cancer Brother No problems noted. Brother No problems noted. Brother No problems noted. Sister No problems noted. Son No problems noted. Daughter No problems noted. Daughter No problems noted. Maternal Aunt Breast cancer, Onset Age: 38 Maternal Aunt Breast cancer Social History Housing: Apartment Alcohol intake: current Alcohol intake frequency: holidays/special occasions only Patient Tobacco Use Status: Current someday Tobacco user Tobacco use type: Cigarette Cigarettes Per Day: 1 e-Cigarette/Vaping Use: Currently Using service: No Current occupational status: employed Current occupation: [employer] Gender identity: Female Cognitive needs: No Hearing needs: No Vision needs: No Female Reproductive History Menstrual Age of Menarche: 15 Date of last menstrual period: 03/21/24 control method: permanent sterilization Total pregnancies: 4 Full term: 3 Number of Living Children: 3 Ab induced: 1 Date of last pap smear: 08/01/20 Review of Systems Const All systems reviewed & are unremarkable except as noted in HPI and below Card Reports as per HPI Resp Reports as per HPI GI Reports as per HPI and Reports no additional complaints Reports as per HPI Physical Exam Vital Signs: Last Vital Signs BP 116/70 04/19/24 10:15 BMI result Body Mass Index 30.5 Const General: cooperative, healthy appearing and comfortable Chest Chest palpation & inspection: normal inspection of the chest and normal palpation of entire chest wall Breast/axilla inspection: normal inspection of the breasts and normal inspection of the axillae Breast/axilla palpation: normal palpation of the breasts, normal palpation of the axillae and no axillary lymphadenopathy Resp Effort & Inspection: normal respiratory effort Auscultation: clear to auscultation bilaterally Percussion: percussion normal Cardio Palpation: normal PMI Rate: regular rate Rhythm: regular rhythm Heart sounds: no murmurs and no rubs Peripheral pulses: Peripheral pulses 2+ throughout GI Inspection: Yes normal to inspection Palpation (GI): Soft to palpation, nontender, no guarding, not rigid and No hepatosplenomegaly present Percussion: Yes normal to percussion Auscultation: normal bowel sounds Rectal Exam - Female: deferred General: Yes bladder normal to palpation External Female Exam: No lesion Speculum Exam - Vagina: normal appearance of the vagina, normal palpation, normal vaginal discharge and not erythematous Speculum Exam - Cervix: normal appearance of the cervix and normal palpation Bimanual exam- vagina & uterus: normal bimanual exam, normal palpation, uterine size normal, bladder normal to palpation, consistency normal and normal palpation Bimanual Exam- Adnexa, other: normal adnexae, no masses and no tenderness Assessment & Plan Assessment & Plan (1) Well woman exam: Code(s): Z01.419 - Encounter for gynecological examination (general) (routine) without abnormal findings Category: Medical Plan: Cotesting not indicated this year. Counseled the patient about the recommended dietary allowance of 1000 mg of Calcium & 600 IU of vitamin D. The patient was instructed to perform monthly self-breast exams and to schedule an annual exam in a year; All questions answered and the patient verbalized understanding. Instructed the patient to schedule annual exam in a year (2) Screening for STD (sexually transmitted disease): Code(s): Z11.3 - Encounter for screening for infections with a predominantly sexual mode of transmission Category: Medical Plan: STD screening tests done includes: BV panel for trichomonas, GC/CT will send patient for serology std screening for HIV, RPR, Hep b s Ag, HepC Ab. Instructions given the patient to schedule a follow-up appointment for repeat serology screen in 6 months for possible false negatives. Orders: Orders Hepatitis C Antibody Today Z20.2 - Contact with and (suspected) exposure to infections with a predominantly sexual mode of transmission HIV Ab/Ag Today Z20.2 - Contact with and (suspected) exposure to infections with a predominantly sexual mode of transmission Hepatitis B Surface Antigen Today Z20.2 - Contact with and (suspected) exposure to infections with a predominantly sexual mode of transmission Syphilis Screen Today Z20.2 - Contact with and (suspected) exposure to infections with a predominantly sexual mode of transmission Coding Level of Care Code Est Pt Prev Care 40-64y(62536) Diagnoses Well woman exam Z01.419 Screening for STD (sexually transmitted disease) Z11.3
[2024-04-19 10:15] VITALS: BP 116/70; BMI 30.5
== END 2024-04-19 10:29 | disposition home or self-care (01) ==
PROVIDERS: PCP Family Medicine; Visit Provider Obstetrics & Gynecology
DX: Z01.419 Encounter for gynecological examination (general) (routine) without abnormal findings (principal)
CPT/HCPCS: 99395

== ENCOUNTER 2024-07-19 07:57 | Outpatient (AMB) | payer OTHER, SELFPAY ==
--- NOTE | 2024-07-19 08:02 | A.OFFPC_ITS ---
Vital Signs 07/19/24 08:09 Height 5 ft 7 in Weight 184 lb 8 oz BMI 28.9 BP 96/66 Blood Pressure Location Lt brachial Position Sitting Respiration 12 Pulse 58 Pulse Source Pulse Oximeter Pulse Oximetry (%) 99 Oxygen Delivery Method Room Air Intake Visit Reasons: Annual Physical Dr. 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 Raissa Baxter HPI Details Patient is a 39-year-old female who presents today for a physical exam. She normally follows with Dr. Bates. Psych: Her LYSSA-7 score did come back positive for some anxiety. No SI/HI. She is not on any medication for this. States that it is infrequent and managed by good coping mechanisms. 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 UTD. high breast cancer risk and getting routine mammograms. Family history: 2x Maternal aunt breast cancer at 30. Aunt was BRCA negative. 1 maternal uncle has testicular cancer. Colon ca paternal grandfather in 80. Works as a [employer] [facility] Medical History Sore throat Depression Anxiety Surgical History History of removal of breast implant History of bilateral tubal ligation History of surgery History of tonsillectomy Family History (Updated 07/19/24 @ 08:05 by Jessica Flannery CMA) Father History of CVA (cerebrovascular accident) Colon cancer Stroke Mother Thyroid dysfunction High cholesterol Pre-diabetes Maternal Grandmother No problems noted. Maternal Grandfather Diabetes mellitus Paternal Grandmother No problems noted. Paternal Grandfather Colon cancer Maternal Aunt Diabetes mellitus Breast cancer Maternal Uncle FH: testicular cancer Brother No problems noted. Brother No problems noted. Brother No problems noted. Sister No problems noted. Son No problems noted. Daughter No problems noted. Daughter No problems noted. Maternal Aunt Breast cancer, Onset Age: 38 Maternal Aunt Breast cancer Other FH: mental illness Substance abuse Social History Housing: Apartment Alcohol intake: current Alcohol intake frequency: holidays/special occasions only Patient Tobacco Use Status: Former Tobacco user Tobacco use type: Cigarette Cigarettes Per Day: 1 Years Smoked: 2 e-Cigarette/Vaping Use: Currently Using Second Hand Smoke Exposure: No service: No Current occupational status: employed Current occupation: [employer] Current occupational exposures/hazards: No Gender identity: Female Cognitive needs: No Hearing needs: No Vision needs: No Female Reproductive History Menstrual Age of Menarche: 15 Questionnaire PHQ-9 Over the last 2 weeks, how often have you been bothered by any of the following problems? 1. Little interest or pleasure in doing things: not at all 2. Feeling down, depressed, or hopeless: not at all 3. Trouble falling or staying asleep, or sleeping too much: not at all 4. Feeling tired or having little energy: not at all 5. Poor appetite or overeating: not at all 6. Feeling bad about yourself - or that you are a failure or have let yourself or your family down: not at all 7. Trouble concentrating on things, such as reading the newspaper or watching television: not at all 8. Moving or speaking so slowly that other people could have noticed. Or the opposite - being so fidgety or restless that you have been moving around a lot more than usual: not at all 9. Thoughts that you would be better off or of hurting yourself in some way: not at all Total score: 0 Depression Screening Interpretation: Negative Depression Screening Done: Yes 38594 - PHQ-9 Billing: Yes Source: Developed by Drs. Nas Mora, Shanelle Miller, Satnam Khoury and colleagues, with an educational thaddeus from [employer]. Thrive Questionnaire Date Thrive assessed: 07/19/24 I am a: Patient What is your living situation today?: I have a steady place to live Within the past 12 months, did the food you bought not last and you didn't have the money to get more?: Often true Within the past 12 months, did you worry whether your food would run out before you got money to buy more?: Never true Do you have trouble paying for medicines?: No Do you have trouble getting transportation to medical appointments?: No Do you have trouble paying your heating and electricity bill?: No Do you have trouble taking care of your child, family member or friend?: No Do you have trouble with day-to-day activities such as bathing, preparing meals, shopping, managing finances, etc.?: No Are you currently unemployed and looking for a job?: No Are you interested in more education?: No Please select the resources that you would like help with: None Currently or been in a relationship where the following occur: I choose not to answer THRIVE Score: 1 AUDIT C Alcohol Use Questionnaire (AUDIT-C) 1. How often do you have a drink containing alcohol?: Never Total Score: 0 Score Reviewed/Action Taken: Yes LYSSA-7 AMB Questionnaire LYSSA-7 Date LYSSA - 7 assessed: 07/19/24 Feeling nervous, anxious, or on edge: 1 = Several days Not being able to stop or control worryin = Several days Worrying too much about different things: 1 = Several days Trouble relaxin = Not at all Being so restless that it is hard to sit still: 0 = Not at all Becoming easily annoyed or irritable: 1 = Several days Feeling afraid as if something awful might happen: 0 = Not at all Total LYSSA-7 score (0-4 normal; 5-9 mild; 10-14 moderate; 15-21 severe): 4 Source: Developed by Drs. Nas Mora, Shanelle Miller, Satnam Khoury and colleagues, with an educational thaddeus from [employer]. LYSSA-7 Assessment Billing LYSSA-7 Assessment Tool: LYSSA-7 Assessment 37297 Physical exam (Primary Care) Tobacco/Smoking Status: Tobacco use Status Tobacco use date assessed 06/09/23 04/18/24 10:14 Patient Tobacco Use Status Current someday Tobacco 04/18/24 10:14 Tobacco use type Cigarette 04/18/24 10:14 e-Cigarette/Vaping Use Currently Using 04/18/24 10:14 Depression Screening Interpretation: Negative Thrive Assessment: Date of Thrive Assessment Date Thrive assessed 06/09/23 04/18/24 10:14 Currently or been in a relationship where the following occur: I choose not to answer Const Orientation/consciousness: patient oriented x3 HENMT Ears: hearing grossly normal bilaterally and TM's normal bilaterally General nose exam: No nasal polyps present Face and sinus: Yes sinuses nontender Mouth: Normal oral and palatal mucosa present Eyes Pupils: Equal, round and reactive pupils present EOM: EOMs intact bilaterally Neck Neck: Yes full ROM and Yes no lymphadenopathy Thyroid: Thyroid normal Chest Chest palpation & inspection: normal inspection of the chest Resp Auscultation: clear to auscultation bilaterally Cardio Rate: regular rate Rhythm: regular rhythm Heart sounds: S1 normal heart sound present and S2 normal heart sound present Peripheral pulses: Peripheral pulses 2+ throughout GI Other: Soft, nontender Auscultation: normal bowel sounds Rectal Exam - Female: deferred General: Yes no CVA tenderness Back/Spine/Pelvis Other: Nontender Back: no CVA tenderness Skin General skin exam: no rashes or lesions noted Neuro General: patient oriented x3, gait normal, CN's II-XI intact bilaterally and deep tendon reflexes 2+ bilaterally Cranial nerves: Yes Equal, round and reactive pupils present Motor exam (neuro): 5/5 motor strength present throughout Sensory Exam: double simultaneous stimulation for sensation normal Coordination: [id number] test normal and Romberg test negative Extrem General: Yes normal to inspection and Yes full ROM Psych Affect: normal affect Attitude: cooperative Thought process: Normal thought process present Thought content: Normal thought content present Insight: Good insight present (Psych) Judgement: Good judgement present (Psych) Results Reviewed Results Reviewed: Laboratory Tests 06/10/23 06/10/23 08:00 08:02 Sodium 140 Potassium 3.5 Chloride 107 Carbon Dioxide 26 Anion Gap 11 L BUN 10 Creatinine 0.76 Estimated GFR > 60 Fasting Glucose 85 Calcium 9.2 Total Bilirubin 0.4 AST 12 ALT 11 Alkaline Phosphatase 57 Total Protein 7.0 Albumin 3.9 Triglycerides 51 Cholesterol 148 LDL Cholesterol, Calc 98 HDL Cholesterol 40 L 25-OH Vitamin D Total 52.0 TSH 1.77 Urine Creatinine 303.59 Urine Microalbumin 11.0 Microalb/Creat Ratio 3.6 Coding Level of Care Code Est Pt Prev Care 18-39y(38075) Diagnoses Encounter for routine history and physical examination Z00.00 Breast lump in female N63.0 Additional Codes PHQ-9 - 89258 - PHQ-9 Billing: Yes ([id number]) LYSSA-7 Assessment Billing - LYSSA-7 Assessment Tool: LYSSA-7 Assessment 46239 ([id number]) Assessment & Plan Assessment & Plan (1) Encounter for routine history and physical examination: Code(s): Z00.00 - Encounter for general adult medical examination without abnormal findings Plan: Health maintenance and labs reviewed. (2) Breast lump in female: Comment: Left breast, 5 cm from the nipple at 03:00 o'clock Code(s): N63.0 - Unspecified lump in unspecified breast Category: Medical Plan: Referral to breast center. Orders: Referrals Breast Surgery Referral N63.0 - Unspecified lump in unspecified breast, Z91.89 - Other specified personal risk factors, not elsewhere classified
[2024-07-19 08:09] VITALS: BP 96/66; PULSE 58; RESP 12; O2SAT 99; BMI 28.9
== END 2024-07-19 08:23 | disposition home or self-care (01) ==
PROVIDERS: PCP Family Medicine; Visit Provider Physician Assistant
DX: Z00.00 Encounter for general adult medical examination without abnormal findings (principal); N63.0 Unspecified lump in unspecified breast

== ENCOUNTER → 2024-07-19 07:57 | Outpatient (BNVA) | payer OTHER, SELFPAY | PROVIDERS: PCP Family Medicine; Visit Provider Physician Assistant | DX: Z00.00 Encounter for general adult medical examination without abnormal findings (principal); N63.0 Unspecified lump in unspecified breast; F41.1 Generalized anxiety disorder | CPT/HCPCS: 96127; 99395 ==